=== PATIENT | male | born 1990 | race Two or more races ===

== ENCOUNTER 2021-11-18 22:12 | Emergency (ER) | payer SELFPAY ==
[~2021-11-18] VITALS: Ht 175.3 cm; Wt 91.0 kg
[2021-11-18 22:14] VITALS: BP 139/77
[2021-11-18] MEDS ORDERED: NALOXONE HCL 0.4 MG/ML 1ML VIAL IM ONE (23:15)
[2021-11-18 23:32] LABS: BASOPHILS % 0.7 % (0.0-2.0); EOSINOPHILS % 0.8 % (0.0-5.0); HEMATOCRIT. 42.3 % (42.0-52.0); HEMOGLOBIN. 13.9 g/dL (14.0-18.0); LYMPHOCYTES % 17.2 % (20.0-50.0); MEAN CORPUSCULAR HEMOGLOBIN 27.3 pg (28.0-32.0); MEAN CORPUSCULAR VOLUME 82.8 fL (80.0-94.0); MONOCYTES % 11.8 % (2.0-8.0); NEUTROPHILS % 69.5 % (40.0-76.0); PLATELET 298 x1000/uL (130-400); RED CELL DISTRIBUTION WIDTH 14.7 % (11.6-14.6)
[2021-11-18 23:45] LABS: CHLORIDE 104 mEq/L (98-107)
[2021-11-18 23:52] LABS: ETHANOL BLOOD < 10 mg/dL
== END 2021-11-18 23:42 | disposition home or self-care (01) ==
LOC: ER 22:12
DX: T40.1X1A Poisoning by heroin, accidental (unintentional), initial encounter (principal); Y92.89 Other specified places as the place of occurrence of the external cause
CPT/HCPCS: 36415; 80053; 80320; 85025; 93005; 96372; 99284; J2310; G0480